=== PATIENT | male | born 1935 | race Caucasian/White ===

== ENCOUNTER 2024-06-10 14:09 | Outpatient (CLI) | payer MEDICARE | END 2024-06-10 23:59 | disposition short-term general hospital (02) | LOC: EMS 14:09 | DX: S81.012A Laceration without foreign body, left knee, initial encounter (principal); W01.0XXA Fall on same level from slipping, tripping and stumbling without subsequent striking against object, initial encounter; Y93.01 Activity, walking, marching and hiking; Y92.480 Sidewalk as the place of occurrence of the external cause | CPT/HCPCS: A0425; A0429 ==